=== PATIENT | female | born 1945 | race Caucasian/White ===

== ENCOUNTER 2022-11-12 09:15 | Outpatient (RCR) | payer MEDICARE, SELFPAY ==
--- NOTE | 2022-10-15 15:41 | PT.OPE ---
PT [place] [facility] PT [facility] Eval Start: 10/15/22 07:54 Freq: Status: Active Protocol: Document 10/15/22 15:40 DESTINEYT (Rec: 10/15/22 15:41 CJT [id number]) E-signed By Cal Drew, PT Physical Therapy Outpatient Evaluation Insurance Information Recert Due Date 01/13/23 Insurance Name Medicare B Medical Diagnosis M70.72 - other bursitis of hip , Left hip Treating Diagnosis M25.551 - R hip pain M25.552 - L hip pain R26.9 - other abnormalities of gait and mobility Referring MD Blair, Jacek VINES Subjective Angel Lovelace is here today because she feels like she waddles and has a lot of trouble with steps and walking long distances. She has had both knees replaced, most recent was in 2019. She says tightness from this causes her to sometimes feel unsteady as her legs and hips tighten up without warning. She does not feel that she is limited with transfers. If she's walking outside, she feels like she gets unbalanced, but does not notice this while inside. Last night she was trying to place a motion sensor and was walking back and forth in her yard, and in the middle of this she felt like she was stuck and her body didn't know which foot should go first. She has had dizziness in the past, but that has subsided. At home, she has commercial subcontractor in the shower and makes a point to turn on lights when she gets up at night. She now uses a cane ( hiking pole) when going outside, especially when navigating obstacles. She does have some pain in her L hip, but that is not her primary concern today. She mentions that she has relatively constant pain, so it is difficult to rate because it is always there. Previous x- rays show arthritis in both hips, R>L, but she notes that her pain is worse on the L ( although she does experience anterior groin pain/tightness on the R). She was offered a prescription for steroids by her physician but expresses concerns about side effects, particularly relating to glaucoma and blood sugar. She also says she is not as strong as she used to be. She gets stiff because she sits more and is less active. Today she is more concerned about her balance and stiffness than her pain. Pain Comments Current Work Status Retired Preferred Name Dana Precautions Therapy Limitations/Systems Review Not Limited Objective Other/Pertinent Objective R Hip ROM Flexion - 108 Abduction - 40 IR/ER - 36/35 Extension - DNT L Hip ROM Flexion - 110 Abduction - 40 IR/ER - 40/36 Extension - DNT R knee ROM - 0-120 L knee ROM - 0-115 R Hip Strength Flexion - 4/5 MMT Abduction - 5/5 MMT *in sitting; 4/5 MMT in S/L Adduction - 5/5 MMT IR - 4+/5 MMT ER - 4+/5 MMT Extension - DNT L Hip Strength Flexion - 4+/5 MMT *pain in lateral L hip Abduction - 5/5 MMT *in sitting; 4+/5 MMT in S/L Adduction - 5/5 MMT IR - 4+/5 MMT ER - 4+/5 MMT Extension - DNT R knee Extension - 5/5 MMT R Knee Flexion - 5/5 MMT L knee Extension - 5/5 MMT L knee Flexion - 5/5 MMT R ankle DF - 5/5 MMT L ankle DF - 5/5 MMT Palpation: pt reports pain/ tenderness with palpation to R >L greater trochanter, glut med, piriformis Pelvis: slight L posterior rotation B FADIR, JOSUE with muscle stretch sensation noted in posterior hip with both; some pain in groin with FADIR on R Gait: wide GREER, short stride length, flat foot strike at initial contact, L>R Trendelenburg LE sensation and DTRs intact Assessment Assessment/Impression [place] is a very pleasant 77 y/ o female who presents to our clinic with bilateral hip pain and stiffness. She has been experiencing pain and tightness in both legs that makes her feel unsteady. Examination reveals deficits in bilateral hip flexion, internal rotation, and external rotation strength, along with bilateral tenderness to palpation at greater trochanter and hip musculature (R>L; see objective). [place] appears to be dealing with the effects of bilateral hip arthritis along with muscle tightness. Skilled PT intervention is medically necessary to address deficits and return pt to highest level of function. The nature of the patient's condition was fully explained, and all questions were answered to her satisfaction. Recommend physical therapy sessions 2x/week for 6 weeks. Pt agrees with this plan. Printout of HEP was given for I completion and pt demonstrates verbal understanding of each exercise . Primary Functional Limitations Walking over uneven ground, stairs, balance Plan of Care Rehabilitation Potential Good Physical Therapy Goals Pt's goals: to have more mobility, to feel more steady STG: to be completed in 2-3 weeks 1. Pt will report a decrease in B hip pain by a factor of 2 in order to sit comfortably without pain. 2. Pt will demonstrate improved B hip flexion strength to 5/5 MMT in order to effectively clear her toes while ambulating. LTG: to be completed in 6 weeks 1. Pt will demonstrate independence with HEP in order to manage symptoms independently. 2. Pt will demonstrate ability to ambulate 500+ ft over even surface without use of cane in order to go for walks for pleasure. 3. Pt will demo ability to ambulate 500+ ft over uneven ground with AD in order to go on short hikes for pleasure and safely set up motion sensors in her yard. Treatment Plan/Direct Interventions Ice/Cold/Vasopneumatic,Joint Mobilization,Manual Therapy, Neuromuscular Re-ed,Self-Care/ Home Management,Therapeutic Activities,Therapeutic Exercises Frequency/Duration 2/week for 6 weeks Patient Will Be Discharged From Therapy Completion of LTG(s),Skills Plateau,Independent w/HEP, Independently Progressing Evaluation Billing Untimed Code Treatment Minutes 48 PT Eval No Charge No Complexity Low Certification Information Initial Certification Date 10/15/22 Ending Certification Date 01/13/23 Provider Signature Shows Agreement With POC & Medical Necessity Physician Signature & Date Requested Please Sign/Date Here Physician Comment/Change : Physician NPI Number #
== END 2022-12-16 13:13 | disposition home or self-care (01) ==
PROVIDERS: PCP Family Medicine; Visit Provider Orthopaedic Surgery
DX: M70.72 Other bursitis of hip, left hip (principal); Z51.89 Encounter for other specified aftercare
CPT/HCPCS: 97110; 97112; 97140; 97161; 97535

== ENCOUNTER 2023-09-29 15:53 | Outpatient (CLI) | payer MEDICARE, SELFPAY | END 2023-09-29 15:54 | disposition home or self-care (01) | PROVIDERS: PCP Family Medicine; Visit Provider Emergency Medicine | DX: Z00.00 Encounter for general adult medical examination without abnormal findings (principal); E03.9 Hypothyroidism, unspecified; I10 Essential (primary) hypertension; E53.8 Deficiency of other specified B group vitamins; Z13.6 Encounter for screening for cardiovascular disorders; Z13.820 Encounter for screening for osteoporosis; Z78.0 Asymptomatic menopausal state | CPT/HCPCS: 80061; 82607; 84443 ==

== ENCOUNTER 2023-10-20 14:57 | Outpatient (CLI) | payer MEDICARE, SELFPAY | END 2023-10-20 14:58 | disposition home or self-care (01) | LOC: LKVREF 14:58 | PROVIDERS: PCP Family Medicine; Visit Provider Emergency Medicine | DX: I10 Essential (primary) hypertension (principal) | CPT/HCPCS: 80048 ==

== ENCOUNTER 2023-11-03 12:40 | Outpatient (CLI) | payer MEDICARE, SELFPAY ==
--- NOTE | 2023-11-03 13:30 | CRLHL7_ITS ---
For Patients: As a result of the Century Cures Act, medical imaging exams and procedure reports are released immediately into your electronic medical record. You may view this report before your referring provider. If you have questions, please contact your health care provider. DXA BONE MINERAL DENSITY STUDY Current height (in): 61.0. Weight (lb): 190.0. Menopause age: 47. Ethnicity: White. Reason for exam: Encounter for screening for osteoporosis. 1. Have you had a previous hip or vertebral fracture? No. 2. Have you had any fractures during your adult life which did not result from significant trauma (e.g., auto accident)? Yes. 3. Did either of your parents have a hip fracture? Yes. 4. Do you smoke? No. 5. Have you ever taken Glucocorticoids? No. 6. Do you have rheumatoid arthritis? Yes. 7. Do you have secondary osteoporosis? No. 8. Do you drink 3 or more alcoholic drinks per day? No. 9. Are you being treated for osteoporosis? No. 10. Have you ever taken any of the following medications: Actonel, Evista, Fosamax, Miacalcin, Reclast, Boniva, Forteo, HRT (i.e. estrogen/hormone therapy), Protelos, Prolia, Vitamin D, Calcium, other ??? please specify. ANSWER: Yes, calcium, vitamin D. 11. Do you have any of the following medical conditions: Anorexia or bulimia, asthma or emphysema, end stage renal disease, hyperparathyroidism, any seizure disorders, cancer, inflammatory bowel diseases, hysterectomy, other ??? please specify. ANSWER: Yes, cancer, hysterectomy. 12. What was your maximum height (inches)? 62. 13. Do you perform weight bearing exercise regularly? Yes. 14. Do you regularly consume dairy products? Yes. 15. Do you drink caffeinated beverages? Yes. 16. At what age did your period start? 9. 17. Are you premenopausal? No. 18. How many full-term pregnancies have you had? 4. 19. Have you ever missed your period for more than 6 months in a row (not including or menopause)? No. TECHNIQUE: Bone mineral density study was performed using the [employer]. FINDINGS: The results of the study expressed as bone mineral density (BMD) are as follows: Lumbar spine L1 to L4: BMD: 0.876 g/cm2. T-score: -1.6. Z-score: 1.1 Neck Left: BMD: 0.598 g/cm2. T-score: -2.3. Z-score: 0.0 Right: BMD: 0.574 g/cm2. T-score: -2.5. Z-score: -0.2 Total Left: BMD: 0.743 g/cm2. T-score: -1.6. Z-score: 0.4 Right: BMD: 0.727 g/cm2. T-score: -1.8. Z-score: 0.3 IMPRESSION: Osteoporosis. Bennett Dueñas M.D. Diagnostic Radiologist [email or web address] Transcribed: 10:53 am DW/Dictated by: Bennett Dueñas MD @ 11/04/2023 8:45:00 AM (Electronically Signed)
== END 2023-11-03 12:41 | disposition home or self-care (01) ==
LOC: RAD 12:41
PROVIDERS: PCP Emergency Medicine; Visit Provider Emergency Medicine
DX: Z13.820 Encounter for screening for osteoporosis (principal); M81.0 Age-related osteoporosis without current pathological fracture; Z78.0 Asymptomatic menopausal state
CPT/HCPCS: 77080

== ENCOUNTER 2023-11-08 07:49 | Outpatient (CLI) | payer MEDICARE, SELFPAY | END 2023-11-08 07:50 | disposition home or self-care (01) | LOC: RAD 07:49 | PROVIDERS: PCP Emergency Medicine; Visit Provider Emergency Medicine | DX: R06.09 Other forms of dyspnea (principal); R06.02 Shortness of breath | CPT/HCPCS: 93306 ==

== ENCOUNTER 2023-11-16 07:46 | Outpatient (CLI) | payer MEDICARE, SELFPAY ==
[2023-11-16 10:37] VITALS: BP 137/89; PULSE 100; RESP 16
[2023-11-16] MEDS: REGADENOSON 0.4 MG/5 ML SYRINGE IVP (10:37)
[2023-11-16] MEDS: SODIUM CHLORIDE 0.9 % (FLUSH) 10 ML SYRINGE IVF (10:37)
--- NOTE | 2023-11-16 12:16 | W.PM.STED ---
Stress Test Note Date Date of test: 11/16/23 Providers Primary care provider: Dalia Puga Stress test physician: Héctor Martinez Stress Test Note Stress test ordered: Lexiscan Indication for test: Shortness of breath Stress test medicine: Lexiscan Results discussion: Patient is a very nice 78-year-old female presents for the above test, after the risks benefits and side effects of this test are explained to her she would like to proceed. Cardiac stress test medical history form is reviewed. Pretest EKG shows normal sinus rhythm with occasional PVCs. Ventricular rate is 82 and blood pressure 134/84. Standard walking Lexiscan protocol is followed for a duration of 5 minutes. Maximum heart rate was 123, which is 103% of the maximum. During this test there were no anginal equivalent symptoms, she had no subjective complaints. Review of the tracing showed no change EKG changes from her mild abnormalities a baseline Impression: Negative electrographic portion of Lexiscan, subjectively negative Follow up suggested: Await nuclear images, these will be reviewed, clinical correlation with these will be needed. Patient recovered normally left this testing facility in excellent condition.
== END 2023-11-16 10:38 | disposition home or self-care (01) ==
LOC: STRESS 07:47
PROVIDERS: PCP Emergency Medicine; Visit Provider Family Medicine
DX: R06.02 Shortness of breath (principal); M54.6 Pain in thoracic spine
CPT/HCPCS: 78452; 93016; 93017; A9500; J2785

== ENCOUNTER 2023-12-01 11:17 | Outpatient (CLI) | payer MEDICARE, SELFPAY | END 2023-12-01 11:18 | disposition home or self-care (01) | LOC: LKVREF 11:17 | PROVIDERS: PCP Emergency Medicine; Visit Provider Emergency Medicine | DX: M81.0 Age-related osteoporosis without current pathological fracture (principal) | CPT/HCPCS: 82306 ==

== ENCOUNTER 2023-12-27 13:55 | Outpatient (CLI) | payer MEDICARE, SELFPAY ==
--- NOTE | 2023-12-27 14:40 | CRLHL7_ITS ---
For Patients: As a result of the Cures Act, medical imaging exams and procedure reports are released immediately into your electronic medical record. You may view this report before your referring provider. If you have questions, please contact your health care provider. BILATERAL SCREENING MAMMOGRAM WITH COMPUTER-AIDED DETECTION AND TOMOSYNTHESIS TECHNIQUE: CC and MLO views were obtained. These mammographic images have been obtained using full-field digital technique. These mammographic images were interpreted with the benefit of computer-aided detection. Breast Tomosynthesis was used in this interpretation. COMPARISON FILM: 08/18/18, 08/31/18 (right only). FINDINGS: There are scattered areas of fibroglandular density IMPRESSION: There is no radiographic evidence for malignancy. ASSESSMENT: BI-RADS Category 2: Benign RECOMMENDATION: Routine screening mammogram in 1 year. A lay language report of this examination will be provided to the patient. Bennett Dueñas M.D. Diagnostic Radiologist [email or web address] ROSEANNA/ana Transcribed: 2:57 p.mFeliciano perez/Dictated by: Bennett Dueñas MD @ 12/28/2023 9:31:00 AM (Electronically Signed)
== END 2023-12-27 13:56 | disposition home or self-care (01) ==
LOC: MAMMO 13:56
PROVIDERS: PCP Emergency Medicine; Visit Provider Emergency Medicine
DX: Z12.31 Encounter for screening mammogram for malignant neoplasm of breast (principal)
CPT/HCPCS: 77063; 77067

== ENCOUNTER 2024-05-01 13:00 | Outpatient (RCR) | payer MEDICARE, SELFPAY | END 2024-08-16 07:38 | disposition home or self-care (01) | PROVIDERS: PCP Emergency Medicine; Visit Provider Physical Medicine & Rehabilitation | DX: M54.50 Low back pain, unspecified (principal); R26.81 Unsteadiness on feet; Z51.89 Encounter for other specified aftercare | CPT/HCPCS: 97110; 97112; 97161 ==

== ENCOUNTER 2024-07-19 10:14 | Outpatient (CLI) | payer MEDICARE, SELFPAY | END 2024-07-19 10:15 | disposition home or self-care (01) | PROVIDERS: PCP Emergency Medicine; Visit Provider Emergency Medicine | DX: E03.9 Hypothyroidism, unspecified (principal); I10 Essential (primary) hypertension | CPT/HCPCS: 80048; 84443 ==

== ENCOUNTER 2024-08-08 08:13 | Day surgery (SDC) | payer MEDICARE, SELFPAY ==
[2024-08-08] VITALS (25 sets, daily range): BP systolic 93–136; BP diastolic 52–88; PULSE 58–81; RESP 12–20; TEMP 35.4–36.7; O2SAT 96–100; BMI 34.7
[2024-08-08] MEDS: ACETAMINOPHEN 500 MG TABLET 1000 MG PO ×3 (09:51→21:46)
[2024-08-08] MEDS: OXYCODONE (CR) 10 MG TAB.ER.12H PO (09:51)
[2024-08-08] MEDS: CELECOXIB 200 MG CAPSULE PO (09:51)
[2024-08-08] MEDS: SODIUM CHLORIDE 0.9 % (FLUSH) 10 ML SYRINGE IVF (09:57)
[2024-08-08] MEDS: LACTATED RINGERS 1000 ML 1,000 ML 100 ML IV ×2 (09:57→11:40)
[2024-08-08] MEDS: fentaNYL 100 MCG/2 ML inj IVP (10:02)
[2024-08-08] MEDS: MIDAZOLAM HCL 1 MG/ML inj IVP (10:02)
--- NOTE | 2024-08-08 10:03 | SUR.PREOP ---
TIME?OUT:?1000 PT/RN/MDA?VERIFICATION?OF?SURGICAL?SITE,?PROCEDURE,?AND?CONSENT OBTAINED?PRIOR?TO?INVASIVE?PROCEDURE. all in agreement
[2024-08-08] MEDS: CEFAZOLIN 1 GM inj IVP (10:34)
--- NOTE | 2024-08-08 10:45 | CRLHL7_ITS ---
For Patients: As a result of the Cures Act, medical imaging exams and procedure reports are released immediately into your electronic medical record. You may view this report before your referring provider. If you have questions, please contact your health care provider. Indication: Hip replacement surgery Technique: AP hip fluoroscopic image. Fluoroscopy time 47.7 seconds. Findings/Impression: Hardware from a right total hip arthroplasty is in satisfactory position. Dictated by Bennett Dueñas MD @ 08/08/2024 12:25:01 PM (Electronically Signed)
[2024-08-08] MEDS: TRANEXAMIC ACID 100 MG/ML INJ 1000 MG IV (11:00)
--- NOTE | 2024-08-08 11:04 | P.NB_ITS ---
Nerve Block Nerve Block Time Seen by Provider: 10:00 Date Seen: 08/08/24 Type of block requested by surgeon for post-operative analgesia: CIRILO/LFCN Side: right Time out performed: Yes Verification of patient name: Yes Verification of date of : Yes Site marking: site marked Name of person performing procedure: Alber Continuous monitoring Was continuous monitoring of O2 sat, B/P, monitor technician, recorded every 15 minutes?: Yes Procedure Checklist: sterile prep, needles and gloves Ultrasound guided. Images saved: Yes Medications given in 5ml increments after negative aspiration: Ropivicaine %: 0.5 mL: 30 Needle gauge: 20 Precedex (mcg): 25 Patient tolerated procedure well: Yes Additional comments: Needle noted below psoas tendon needle noted adjacent to LFCN Block Charges Block Charge (with Pro Fee): Other Periph Nerve Block Use of Ultrasound Machine for Block: Yes- US Guidance/pain block
--- NOTE | 2024-08-08 12:00 | CRLHL7_ITS ---
For Patients: As a result of the Cures Act, medical imaging exams and procedure reports are released immediately into your electronic medical record. You may view this report before your referring provider. If you have questions, please contact your health care provider. Indication: Postop Technique: AP hip centered pelvis and lateral view right hip Findings/Impression: Hardware from a right total hip arthroplasty is in satisfactory position. Bone alignment is normal. No sign of acute fracture. Postop changes are within normal limits. Dictated by Bennett Dueñas MD @ 08/08/2024 3:35:18 PM (Electronically Signed)
--- NOTE | 2024-08-08 12:01 | P.ORPRC_ITS ---
Procedure Note Date of procedure: 08/08/24 Procedure: PREOPERATIVE DIAGNOSIS: Right hip osteoarthritis POSTOPERATIVE DIAGNOSIS: Right hip osteoarthritis NAME OF OPERATION: Right total hip arthroplasty SURGEON: Jacek Blair MD FARM AGENT: Jadyn Quinonez PA-C, SANDIE Horton, Marsha Abdul, MS4 IMPLANTS: 1. [employer] [place] # 48 sector ingrowth cup 2. 32 x 48 +4 neutral polyethylene 3. Actis #4 standard collared ingrowth stem 4. 32 +1 cobalt chrome femoral head ANESTHESIA: Spinal ESTIMATED BLOOD LOSS: 200 cc COMPLICATIONS: None SPECIMENS: None DRAINS: None PREOPERATIVE ANTIBIOTICS: Ancef 2 grams INDICATIONS: The patient is an 78-year-old with a longstanding history of severe, unrelenting right hip pain secondary to end-stage right hip osteoarthritis. Despite appropriate nonoperative management, including activity modification, use of an assist device, anti-inflammatories, [id number] pain medication, physical therapy and injections, they continue to have pain and disability. Operative intervention was offered. The risks, benefits and expected outcomes were discussed in detail. These included but were not limited to: Infection, bleeding, injury to blood vessel or nerve, venous thromboembolism. All questions were answered to their satisfaction. Use of an human resources benefits assistant was necessary throughout the case for patient positioning and safety, soft tissue retraction and closure. PROCEDURE: Spinal anesthesia was administered. The patient was placed supine on the [place] table. The human resources benefits assistant made sure the patient was properly positioned. The right hip was prepped and draped in the usual sterile fashion. The image intensifier was brought in for a perfect AP pelvis and a perfect double tear drop AP view of each hip which were used for intraoperative templating with our fluoroscopic guide. An oblique incision was made 3 cm distal and 3 cm lateral to the anterior superior iliac spine. The human resources benefits assistant retracted the soft tissues to protect them. Subcutaneous dissection was taken with electrocautery to the superficial fas martin. The fascia was divided in line with the incision. Blunt dissection was carried medially to the tensor fascia crys and sartorius interval. Deep dissection was carried with electrocautery. The circumflex vessels were cauterized and divided. The capsule was exposed and then divided in a T- fashion, tagged with #1 FiberWire sutures. Retractors were placed in the joint, held by the human resources benefits assistant. The corkscrew was placed in the femoral head. The neck cut was made in the subcapital region. We made a second neck cut more distal. The napkin ring of bone was removed. The femoral head was removed intact. Acetabular retractors were placed, held by the human resources benefits assistant. The labrum was sharply debrided. The capsule was released. The 43 mm reamer was used to the true medial wall. We then enlarged in 2 mm increments using the image intensifier for our reamer placement. We impacted the cup which had excellent purchase. We placed the polyethylene. Attention was then turned to the proximal femur. The limb was placed in 140 degrees of external rotation, maximum extension and adduction. A significant amount of time was spent releasing the capsule to allow us to deliver the femur into the wound and complete the femoral side safely. Retractors were held by the human resources benefits assistant throughout the femoral preparation. The box brander and canal finder were used. Broaches were used to a stable size. The calcar reamer was used. Trial components were placed. The hip was reduced and was found to be stable with appropriate soft tissue tension. Length and offset had been nicely restored using the image intensifier and our fluoroscopic guide. Trial components were removed. The stem was impacted. We placed the femoral head. Again, the hip was reduced and was found to be stable with appropriate soft tissue tension. Length and offset had been nicely restored. The human resources benefits assistant did a three minute dilute Betadine solution soak. The human resources benefits assistant irrigated the wound with 3 liters of normal saline via pulse lavage. The human resources benefits assistant repaired the anterior capsule with a #1 Vicryl and our previously placed Ethibond sutures. The human resources benefits assistant closed the fascia over the tensor fascia crys with a #1 PDO Stratafix, subcutaneous tissues with 2-0 Vicryl, skin with a running 3-0 Stratafix and glue. A dry dressing was applied by the human resources benefits assistant. Sponge and needle counts were correct x 2. The patient tolerated the procedure well; there were no apparent complications. They were awakened and extubated in the operating room, sent to the Post-Anesthesia Care Unit in satisfactory condition. PLAN: 1. The patient will be mobilized with physical therapy, weight-bearing as tolerates 2. Xarelto x 5 days then aspirin x 30 days will be used for DVT prophylaxis 3. The patient will be discharged once medically appropriate
--- NOTE | 2024-08-08 12:21 | P.ANES_ITS ---
Anesthesia Charges Start Date/Time Anesthesia Start Date: 08/08/24 Anesthesia Start Time: 10:13 Stop Date/Time Anesthesia Stop Date: 08/08/24 Anesthesia Stop Time: 13:00 Summary Extremes of Age - Over 70 or under 1: MDA Coding CPT Codes CPT Codes: ANESTH HIP ARTHROPLASTY - 46543 ([id number]) P2 - PATIENT W/MILD SYST DISEASE, QK - CALL CENTER ASSOCIATE 2-4 CNCRNT ANES PROC, QX - SALESPERSON FLOWERS SVC W/ MD MED DIRECTION Additional Codes: Summary - Extremes of Age - Over 70 or under 1: MDA ([id number])
--- NOTE | 2024-08-08 12:21 | W.ANESCHARGE ---
Anesthesia Charges Start Date/Time Anesthesia Start Date: 08/08/24 Anesthesia Start Time: 10:13 Stop Date/Time Anesthesia Stop Date: 08/08/24 Anesthesia Stop Time: 13:00 Summary Extremes of Age - Over 70 or under 1: MDA Coding CPT Codes CPT Codes: ANESTH HIP ARTHROPLASTY - 33871 ([id number]) P2 - PATIENT W/MILD SYST DISEASE, QK - PASTEURISER OPERATOR 2-4 CNCRNT ANES PROC, QX - SENIOR APPLICATIONS ENGINEER SVC W/ MD MED DIRECTION Additional Codes: Summary - Extremes of Age - Over 70 or under 1: MDA ([id number])
--- NOTE | 2024-08-08 13:01 | P.ANES_ITS ---
Anesthesia Charges Start Date/Time Anesthesia Start Date: 08/08/24 Anesthesia Start Time: 10:13 Stop Date/Time Anesthesia Stop Date: 08/08/24 Anesthesia Stop Time: 13:00 Coding CPT Codes CPT Codes: ANESTH HIP ARTHROPLASTY - 40117 ([id number]) P2 - PATIENT W/MILD SYST DISEASE, QK - KITMAN 2-4 CNCRNT ANES PROC, QX - ASSOCIATE MUSIC PROFESSOR SVC W/ MD MED DIRECTION
--- NOTE | 2024-08-08 13:01 | W.ANESCHARGE ---
Anesthesia Charges Start Date/Time Anesthesia Start Date: 08/08/24 Anesthesia Start Time: 10:13 Stop Date/Time Anesthesia Stop Date: 08/08/24 Anesthesia Stop Time: 13:00 Coding CPT Codes CPT Codes: ANESTH HIP ARTHROPLASTY - 36454 ([id number]) P2 - PATIENT W/MILD SYST DISEASE, QK - OFFSET PRINTING OPERATOR 2-4 CNCRNT ANES PROC, QX - AGENCY MANAGER SVC W/ MD MED DIRECTION
[2024-08-08] MEDS: ONDANSETRON 2 MG/ML inj 4 MG IVP ×2 (13:16→20:03)
--- NOTE | 2024-08-08 13:43 | SUR.PHASEI ---
patient met discharge criteria per anesthesia
[2024-08-08] MEDS: HYDROmorphone 0.5 mg/0.5 ml inj IVP (14:19)
[2024-08-08] MEDS: LACTATED RINGERS 1000 ML 1,000 ML 75 ML IV (16:18)
[2024-08-08] MEDS: OXYCODONE 5 MG TABLET PO ×2 (16:18→21:48)
--- NOTE | 2024-08-08 16:38 | PC.NURSE ---
End of shift [id number] - Pt arrived from PACU at approximately 1340. Pt alert, oriented, and cooperative. Able to follow commands. Slight movement noted in bilat LE, pt reported feeling tingling and burning in surgical site. Given medication per MAR with pt reporting improvement. Ice pack on site, dressing CDI, pedal pulse present. Tolerating RA and ice chips, reported intermittent mild nausea that resolved with no intervention. O2 saturation dropped while pt was asleep, RN added O2 at 1L via nasal cannula to maintain O2 saturation. Pt appears to be resting comfortably in bed at end of shift with call light within reach.
--- NOTE | 2024-08-08 17:07 | PM.IMCN1 ---
Date of Consult Patient: [facility] Patient Consult date: 08/08/24 Requesting Physician: Orthopedics Primary Care Provider: Dalia Puga Consult Narrative Reason for consult: Medical management of comorbidities Narrative: [place] Verduzco is a 78 year old female who presented to the hospital today for an elective R hip replacement with Dr. Blair of Orthopedic Surgery. There were no surgical or anesthetic complications noted during procedure. Patient's H&P reviewed, PCP is Dr Puga. Past medical history significant for: hypothyroidism, essential HTN, osteoporosis History of blood clots: No Postoperative plan: Home, son will be staying with her. Review of Systems Status of ROS: Reports: 10 or more systems reviewed and unremarkable except as noted in History and below PFSH [facility] Medical History (Updated 08/08/24 @ 19:01 by Danita Aragon MD) GERD (gastroesophageal reflux disease) ?K21.9 - Gastro-esophageal reflux disease without esophagitis (ICD-10) Osteoporosis ?M81.0 - Age-related osteoporosis without current pathological fracture (ICD-10) Back pain, thoracic ?M54.6 - Pain in thoracic spine (ICD-10) SOB (shortness of breath) ?R06.02 - Shortness of breath (ICD-10) Hyperlipidemia ?E78.5 - Hyperlipidemia, unspecified (ICD-10) Screening for diabetes mellitus ?Z13.1 - Encounter for screening for diabetes mellitus (ICD-10) Hypertension ?I10 - Essential (primary) hypertension (ICD-10) Screening for hyperlipidemia ?Z13.220 - Encounter for screening for lipoid disorders (ICD-10) Family history of coronary artery disease ?Z82.49 - Family history of ischemic heart disease and other diseases of the circulatory system (ICD-10) Post-menopausal ?Z78.0 - Asymptomatic menopausal state (ICD-10) B12 deficiency ?E53.8 - Deficiency of other specified B group vitamins (ICD-10) Muscle cramps ?R25.2 - Cramp and spasm (ICD-10) Cyst of perineum of female ?N90.89 - Other specified noninflammatory disorders of vulva and perineum (ICD-10) Rib fracture ?S22.39XA - Fracture of one rib, unspecified side, initial encounter for closed fracture (ICD-10) Low bone density ?M85.9 - Disorder of bone density and structure, unspecified (ICD-10) Chest wall pain ?R07.89 - Other chest pain (ICD-10) Foot fracture, right ?S92.901A - Unspecified fracture of right foot, initial encounter for closed fracture (ICD-10) Foot fracture, left ?S92.902A - Unspecified fracture of left foot, initial encounter for closed fracture (ICD-10) Breast cancer ?C50.919 - Malignant neoplasm of unspecified site of unspecified female breast (ICD-10) Hypothyroid ?E03.9 - Hypothyroidism, unspecified (ICD-10) Surgical History (Updated 08/08/24 @ 19:01 by Danita Aragon MD) Status post right hip replacement ?Z96.641 - Presence of right artificial hip joint (ICD-10) History of total right hip arthroplasty (08/08/24) ?Z96.641 - Presence of right artificial hip joint (ICD-10) History of total left knee replacement ?Z96.652 - Presence of left artificial knee joint (ICD-10) Hx of cataract surgery ?Z98.49 - Cataract extraction status, unspecified eye (ICD-10) History of hysterectomy ?Z90.710 - Acquired absence of both cervix and uterus (ICD-10) Hx of cholecystectomy ?Z90.49 - Acquired absence of other specified parts of digestive tract (ICD-10) History of appendectomy ?Z90.49 - Acquired absence of other specified parts of digestive tract (ICD-10) H/O lumpectomy ?Z98.890 - Other specified postprocedural states (ICD-10) History of total right knee replacement (02/10/08) ?Z96.651 - Presence of right artificial knee joint (ICD-10) Status post left knee replacement (02/06/20) ?Z96.652 - Presence of left artificial knee joint (ICD-10) Family History (Updated 09/29/23 @ 15:45 by Dalia Puga MD) Daughter Congenital heart defect Brother Coronary artery disease Mother Coronary artery disease Father Colon cancer Social History (Updated 07/19/24 @ 10:11 by Dalia Puga MD) Narrative: retired [employer], [address], x 2, 3 living no tobacco, 1/week stability and balance ,silver sneakers 2x/week, [facility] What is your current living situation?: I presently have a place to live In the past 12 months, utilities in danger of being shut off: no In past 12 months, lack of transportation kept you from medical appts, meetings, work, or getting things needed for daily living: no In the past 12 mos, have been you worried that your food would run out before you had money to buy more?: never true In the past 12 mos, the food you bought just didn't last and you didn't have money to buy more?: never true Smoking Status: Never smoker Do you use any of these nicotine containing products: None How often do you have a drink containing alcohol: never AUDIT-C Alcohol total score: 0 Non-prescribed substance use: denies use Caffeine: No How often does anyone, including family, friends and others, physically hurt you: never How often does anyone, including family, friends and others, insult or talk down to you: never How often does anyone, including family, friends and others, threaten you with harm: never How often does anyone, including family, friends and others, scream or curse at you: never Meds Home Medications and Allergies Home Medications ?Medication ?Instructions ?Recorded ?Confirmed ?Type cyclobenzaprine 10 mg tablet 10 mg PO HS PRN 11/19/21 08/08/24 History latanoprost 0.005 % eye drops 1 drp ophthalmic (eye) QPM 09/29/23 08/08/24 History timolol 0.5 % eye drops 1 drp ophthalmic (eye) DAILY 09/29/23 08/08/24 History Cbd oil PO PRN 10/20/23 07/19/24 History amoxicillin 500 mg capsule 2,000 mg PO ONCE PRN 10/20/23 08/08/24 History levothyroxine 75 mcg tablet 75 mcg PO DAILY 08/08/24 08/08/24 History losartan 50 mg tablet 50 mg PO DAILY 08/08/24 08/08/24 History Allergies Allergy/AdvReac Type Severity Reaction Status Date / Time bupropion (From Wellbutrin) Allergy Intermediate Hives Verified 07/25/24 09:01 Exam Narrative: Exam Narrative: GEN: Alert and oriented, sitting comfortably in bed HEENT: EOMIs bilaterally, no scleral icterus CV: RRR, No concerning murmurs R: LCTA bilaterally without concerning wheezing Ext: SCDs BLE, no concerning findings Skin: No concerning skin lesions or rashes on exposed skin Neuro: No focal deficits Psych: Appropriate Const: Vital Signs, click to edit/add: Vital Signs - 24 hr 08/08/24 09:54 08/08/24 10:01 08/08/24 10:04 Temperature 98.1 F Pulse Rate 81 77 71 Respiratory Rate 16 16 16 Blood Pressure 136/86 102/63 110/65 Pulse Oximetry 97 97 98 Oxygen Delivery Me thod Room Air Nasal Cannula Nasal Cannula Oxygen Flow Rate 2 2 08/08/24 12:56 08/08/24 13:00 08/08/24 13:05 Temperature 97 F L 97 F L 97 F L Pulse Rate 67 73 68 Respiratory Rate 12 12 20 Blood Pressure 104/59 L 93/52 L 93/66 Pulse Oximetry 97 98 98 Oxygen Delivery Me thod Room Air Room Air Room Air Oxygen Flow Rate 08/08/24 13:10 08/08/24 13:15 08/08/24 13:20 Temperature 97 F L 97 F L 97 F L Pulse Rate 65 64 64 Respiratory Rate 15 13 12 Blood Pressure 109/64 98/62 111/64 Pulse Oximetry 96 96 96 Oxygen Delivery Me thod Room Air Room Air Room Air Oxygen Flow Rate 08/08/24 13:25 08/08/24 13:30 08/08/24 13:40 Temperature 97 F L 97.4 F L 95.7 F L Pulse Rate 71 68 68 Respiratory Rate 18 18 16 Blood Pressure 114/72 116/66 117/70 Pulse Oximetry 96 99 97 Oxygen Delivery Me thod Room Air Room Air Room Air Oxygen Flow Rate 08/08/24 13:55 08/08/24 14:10 08/08/24 14:25 Temperature 96.0 F L 95.9 F L Pulse Rate 68 59 L 67 Respiratory Rate 16 16 16 Blood Pressure 117/73 118/69 119/82 Pulse Oximetry 99 100 100 Oxygen Delivery Me thod Oxygen Flow Rate 08/08/24 14:40 08/08/24 15:00 08/08/24 15:10 Temperature Pulse Rate 58 L 59 L Respiratory Rate 16 16 Blood Pressure 118/66 121/61 Pulse Oximetry 100 97 100 Oxygen Delivery Me thod Nasal Cannula Room Air Nasal Cannula Oxygen Flow Rate 1 1 08/08/24 15:30 08/08/24 15:50 Temperature 97.5 F L 95.7 F L Pulse Rate 72 68 Respiratory Rate 16 16 Blood Pressure 106/64 117/70 Pulse Oximetry 98 97 Oxygen Delivery Me thod Room Air Room Air Oxygen Flow Rate Assessment and Plan Assessment and plan (1) Status post right hip replacement: Problem comment: - 08/08/24, Dr. Blair Status: Acute Plan - pain management and prophylaxis per orthopedic surgery team - continue home medications for comorbidities - anticipate routine postoperative course
[2024-08-08] MEDS: CEFAZOLIN 2 GM in 0.9 % SODIUM CHLORIDE Mini-bag 100 ML IVPB (18:34)
[2024-08-08] MEDS: SENNOSIDES 1 TAB TABLET 2 TAB PO (21:46)
[2024-08-08] MEDS: MELATONIN 3 MG TABLET PO (21:46)
[2024-08-08] MEDS: MAG HYDROX/ALUMINUM HYD/SIMETH 30 ML ORAL.SUSP PO (23:57)
[2024-08-09 03:00] VITALS: BP 113/66; PULSE 79; RESP 16; TEMP 36.4; O2SAT 99
[2024-08-09] MEDS: CEFAZOLIN 2 GM in 0.9 % SODIUM CHLORIDE Mini-bag 100 ML IVPB (03:08)
[2024-08-09] MEDS: ONDANSETRON 2 MG/ML inj 4 MG IVP (03:51)
[2024-08-09] MEDS: ACETAMINOPHEN 500 MG TABLET 1000 MG PO ×2 (03:51→10:13)
[2024-08-09] MEDS: LEVOTHYROXINE 75 MCG TABLET PO (06:29)
[2024-08-09 06:31] LABS: Basophils Percent Auto 0.1 % (0.0-3.0); Eosinophils Percent Auto 0.1 % (0.0-7.0); Hematocrit 32.1 % (33.0-51.0); Hemoglobin* 10.5 gm/dL (12.0-16.0); Immature Granulocytes Pct Auto 0.3 %; Mean Corpuscular HGB Conc 33 gm/dL (32-36); Mean Corpuscular Hemoglobin 31 pg (26-34); Mean Corpuscular Volume 93 fL (80-100); Monocytes Percent Auto 7.2 % (0.0-11.0); Neutrophils Percent Auto 85.3 % (42.0-72.0); Platelet Count* 197 K/uL (140-440); Red Blood Count 3.44 m/uL (4.00-5.20); White Blood Count* 12.03 K/uL (4.50-11.00)
[2024-08-09 06:34] LABS: Slide Review Reflex No
[2024-08-09 06:47] LABS: Potassium* 4.3 mmol/L (3.6-5.1); Sodium* 130 mmol/L (135-149)
[2024-08-09 06:50] LABS: Blood Urea Nitrogen* 18 mg/dL (7-30); Creatinine* 0.7 mg/dL (0.5-1.5); Est. Creatinine Clearance* 33.86; Estimated Glomerular Filt Rate 87 ml/min
--- NOTE | 2024-08-09 06:58 | PC.NURSE ---
[id number]: Pt alert, oriented and vitally stable. Pt stated nausea post surgically and it is recurrent through past surgeries. Pt educated on restricting fluids instead of chugging, Zofran given. Pt did have 25-50 out of emesis. Pt also stated mild dizziness. Pt up with 1 assist, FWW and gait belt. Pain rated minimal. Ice pack to op site. Pt in bed, appears to be resting, call light within reach.
[2024-08-09] MEDS: RIVAROXABAN 10 MG TABLET PO (08:22)
[2024-08-09] MEDS: OXYCODONE 5 MG TABLET PO (08:22)
[2024-08-09] MEDS: SENNOSIDES 1 TAB TABLET 2 TAB PO (08:22)
--- NOTE | 2024-08-09 08:25 | PM.ORPN ---
Subjective Subjective Time Seen by Provider: 07:30 Date Seen: 08/09/24 Principal diagnosis: Status post right hip replacement Interval history: [place] is ambulating well this morning from restroom to her chair. She states she vomited twice yesterday. She plans to discharge to home with her son today. Ortho Exam Narrative Exam Narrative: Alert and oriented x3. Patient is in no acute distress. Converses without labored breathing. Hearing is grossly intact. Ambulates with a walker. Examination of the right hip shows the dressing is intact. There is no warmth or sign of infection. There is erythema from the ice pack lateral/posteriorly. CMS intact right lower extremity. Calves are soft and nontender. No edema about the thigh. Mild edema about the hip. Const Vital Signs, click to edit/add: Vital Signs - 24 hr 08/08/24 09:54 08/08/24 10:01 08/08/24 10:04 Temperature 98.1 F Pulse Rate 81 77 71 Pulse Rate [Right Pulse Oximeter] Respiratory Rate 16 16 16 Blood Pressure 136/86 102/63 110/65 Blood Pressure [Left Arm] Pulse Oximetry 97 97 98 Oxygen Delivery Method Room Air Nasal Cannula Nasal Cannula Oxygen Flow Rate 2 2 08/08/24 12:56 08/08/24 13:00 08/08/24 13:05 Temperature 97 F L 97 F L 97 F L Pulse Rate 67 73 68 Pulse Rate [Right Pulse Oximeter] Respiratory Rate 12 12 20 Blood Pressure 104/59 L 93/52 L 93/66 Blood Pressure [Left Arm] Pulse Oximetry 97 98 98 Oxygen Delivery Method Room Air Room Air Room Air Oxygen Flow Rate 08/08/24 13:10 08/08/24 13:15 08/08/24 13:20 Temperature 97 F L 97 F L 97 F L Pulse Rate 65 64 64 Pulse Rate [Right Pulse Oximeter] Respiratory Rate 15 13 12 Blood Pressure 109/64 98/62 111/64 Blood Pressure [Left Arm] Pulse Oximetry 96 96 96 Oxygen Delivery Method Room Air Room Air Room Air Oxygen Flow Rate 08/08/24 13:25 08/08/24 13:30 08/08/24 13:40 Temperature 97 F L 97.4 F L 95.7 F L Pulse Rate 71 68 68 Pulse Rate [Right Pulse Oximeter] Respiratory Rate 18 18 16 Blood Pressure 114/72 116/66 117/70 Blood Pressure [Left Arm] Pulse Oximetry 96 99 97 Oxygen Delivery Method Room Air Room Air Room Air Oxygen Flow Rate 08/08/24 13:55 08/08/24 14:10 08/08/24 14:25 Temperature 96.0 F L 95.9 F L Pulse Rate 68 59 L 67 Pulse Rate [Right Pulse Oximeter] Respiratory Rate 16 16 16 Blood Pressure 117/73 118/69 119/82 Blood Pressure [Left Arm] Pulse Oximetry 99 100 100 Oxygen Delivery Method Oxygen Flow Rate 08/08/24 14:40 08/08/24 15:00 08/08/24 15:10 Temperature Pulse Rate 58 L 59 L Pulse Rate [Right Pulse Oximeter] Respiratory Rate 16 16 Blood Pressure 118/66 121/61 Blood Pressure [Left Arm] Pulse Oximetry 100 97 100 Oxygen Delivery Method Nasal Cannula Room Air Nasal Cannula Oxygen Flow Rate 1 1 08/08/24 15:30 08/08/24 15:50 08/08/24 16:00 Temperature 97.5 F L 95.7 F L Pulse Rate 72 68 70 Pulse Rate [Right Pulse Oximeter] Respiratory Rate 16 16 16 Blood Pressure 106/64 117/70 125/88 Blood Pressure [Left Arm] Pulse Oximetry 98 97 97 Oxygen Delivery Method Room Air Room Air Room Air Oxygen Flow Rate 08/08/24 17:00 08/08/24 18:00 08/08/24 19:00 Temperature 98 F 96.9 F L Pulse Rate 75 79 72 Pulse Rate [Right Pulse Oximeter] Respiratory Rate 16 16 16 Blood Pressure 128/83 120/82 120/72 Blood Pressure [Left Arm] Pulse Oximetry 97 97 97 Oxygen Delivery Method Room Air Room Air Room Air Oxygen Flow Rate 08/08/24 23:00 08/08/24 23:00 08/08/24 23:00 Temperature 97.5 F L Pulse Rate Pulse Rate [Right Pulse Oximeter] 74 74 Respiratory Rate 20 20 20 Blood Pressure Blood Pressure [Left Arm] 125/75 Pulse Oximetry 98 98 Oxygen Delivery Method Room Air Room Air Oxygen Flow Rate 08/09/24 03:00 Temperature 97.6 F Pulse Rate Pulse Rate [Right Pulse Oximeter] 79 Respiratory Rate 16 Blood Pressure Blood Pressure [Left Arm] 113/66 Pulse Oximetry 99 Oxygen Delivery Method Room Air Oxygen Flow Rate Assessment and Plan Assessment and plan (1) Status post right hip replacement: Problem details: - 08/08/24, Dr. Blair Status: Acute Assessment and Plan: Plan for discharge is today, and when they meets discharge criteria. DVT prophylaxis upon discharge includes Xarelto 10mg daily for a total of 5 days, then Aspirin 81mg twice daily for 30 days. Remove dressing 1 week. Observe wound and phone Orthopedics with any questions or concerns Use Ice on operative hip unrestricted. Return to clinic in 7-10 days for a wound check Return to clinic in 6 weeks with surgeon Minimize narcotic use. Wean off and discontinue soon as possible. Activities as tolerated. No strenuous activity. Attend outpt PT
[2024-08-09 08:33] VITALS: BP 99/82; PULSE 81; RESP 16; TEMP 36.3; O2SAT 98; O2SAT 99
[2024-08-09 08:47] VITALS: BP 110/72
--- NOTE | 2024-08-09 10:47 | PC.SOCIAL ---
Discharge Planning: SW met with patient and patient's son. Patient reports that she has support from her son for the week. Patient states that she also has support from other family member, neighbors and friends if needed. Patient explains she received information about [facility] Patient discussed that she already has some meals prepped at home as well. Patient had no concerns at this time for SW.
--- NOTE | 2024-08-09 11:11 | PC.NURSE ---
Patient discharged home with son. PIV taken out and catheter intact. Ice packs sent home with patient. Prescriptions were sent to [facility] pharmacy. Patient has outpatient PT scheduled and a post op appointment scheduled as well. Patient continues to have some dizziness and nausea but does ambulate to bathroom with stand by assist. Patients son will be with her at home. All questions answered. Left via wheelchair escort.
== END 2024-08-09 11:13 | disposition home or self-care (01) ==
LOC: OR 08:17 → MEDSURG 08:17
PROVIDERS: PCP Emergency Medicine; Visit Provider Orthopaedic Surgery
PROC: (CPT 27130; principal; 2024-08-08 10:45)
DX: M16.11 Unilateral primary osteoarthritis, right hip (principal); G89.18 Other acute postprocedural pain; I10 Essential (primary) hypertension; M81.0 Age-related osteoporosis without current pathological fracture; K21.9 Gastro-esophageal reflux disease without esophagitis; Z79.01 Long term (current) use of anticoagulants; Z51.81 Encounter for therapeutic drug level monitoring; R07.89 Other chest pain; E03.9 Hypothyroidism, unspecified; E78.5 Hyperlipidemia, unspecified
CPT/HCPCS: 27130; 01214; 36415; 64450; 73501; 76942; 82565; 84132; 84295; 84520; 85025; 86850; 86900; 86901; 97110; 97116; 97162; 97165; 97530; 97535; 99100; A9270; C1776; J0690; J1100; J1171; J2250; J2405; J2704; J2795; J3010; J7120

== ENCOUNTER 2024-09-18 11:30 | Outpatient (RCR) | payer MEDICARE, SELFPAY ==
--- NOTE | 2024-08-17 13:51 | PT.OPE ---
PT [place] Outpatient Eval PT [facility] Outpatient Eval Start: 08/17/24 08:41 Freq: Status: Active Protocol: Document 08/17/24 13:50 DESTINEYT (Rec: 08/17/24 13:51 DESTINEYT [id number]) E-signed By Cal Drew PT Physical Therapy Outpatient Evaluation Insurance Information Recert Due Date 11/15/24 Insurance Name Medicare B Medical Diagnosis Z96.641 - Presence of right artificial hip joint Treating Diagnosis Z96.641 R hip replacement Z47.1 Joint replacement aftercare Referring Jacek Reed Subjective Preferred Name Dana Subjective Pt presents today s/p R KIM on 08/08/2024. Pt presents with son Raimundo. Pt is doing well overall, reports just taking tylenol for pain management. Pt reports not having any issues since the surgery and is sleeping well. Also reports that she is consistently completing exercises given and is walking around the house with the walker. Pt lives in a [place]. Would like to know if she can use a 4WW or walking sticks. Pain Comments 05/29 Date of Surgery (If applicable) 08/08/24 Current Work Status Retired Precautions Therapy Limitations/Systems Review Not Limited Objective Other/Pertinent Objective PROM: flexion 90, abduction 20 , IR/ER 10-15 ea Ambulation: pt ambulates with FWW, antalgic favoring R, slight reduction in stride length and wide GREER Scar: covered with dressing, no visible signs of redness, drainage at this time, pts surgical incision present with swelling, induration this date Assessment Assessment/Impression [place] is a very pleasant 78 year old female who presents to our clinic for evaluation and treatment of R KIM. Pt demonstrating good recovery and minimal pain following surgery. Currently ambulating with use of FWW. I do think that Dana could make the transfer to a cane or walking sticks when she feels she is ready as she appears stable with her gait today. I have no concerns for Dana at this time. Will progress pt's ROM, strength, and function per KIM protocol. The nature of the pts condition was explained and all questions were answered to the pts satisfaction. Skilled PT services are medically necessary to address deficits and return patient to highest level of function. Recommend physical therapy sessions 1/ week for 8-12 weeks. Pt agrees with this plan. Printout of HEP was given for I completion and pt gives verbal understanding of each exercise . Co-Signed by Cal Drew, TYL[place] [id number] Primary Functional Limitations Walking, transfers, stairs Plan of Care Rehabilitation Potential Excellent Physical Therapy Goals STG - To be completed in 4 weeks: 1. Pt will report and demonstrate proper performance of HEP and surgical precautions to allow for appropriate recovery following surgery and reduce risk of dislocation. 2. Pt will demonstrate appropriate use of ADs at all times to allow for ease of ambulation and reduce risk of falls. 3. Pt will demonstrate ability to perform all transfers and negotiate stairs I so that they may move throughout his house safely by himself. 4. Pt will demo 0 degrees hip extension to reduce risk of contracture in anterior hip and allow for ease of ambulation. LTG - To be completed in 8 weeks: 1. Pt to be I with HEP so that they may I mange progression of symptoms. 2. Pt will demonstrate 5/5 MMT for all hip motions without pain to provide greater support to pelvis and lumbar spine with functional activities. 3. Pt will ambulation without AD and no gait deviations to reduce straining forces on pelvis and lumbar spine so that they may returning to walking for pleasure with their family. 4.Pt will perform 10+ squats of full depth with good control over medial/lateral deviation of knees to show improved functional strength to assist with transfers. Treatment Plan/Direct Interventions Electrical Stimulation,Gait Training,Heat,Ice/Cold/ Vasopneumatic,Joint Mobilization,Manual Therapy, Neuromuscular Re-ed,Self-Care/ Home Management,Therapeutic Activities,Therapeutic Exercises Frequency/Duration 1/week for 8-12 weeks Patient Will Be Discharged From Therapy Completion of LTG(s),Skills Plateau,Independent w/HEP, Independently Progressing Evaluation Billing Untimed Code Treatment Minutes 20 PT Eval No Charge No Complexity Low Student Supervision Licensed PT Directed/Approved Treatment, Reviewed POC with Patient,Made Contact with Patient, Participated in Treatment Documentation Reviewed By Classified Copy Control Clerk Yes Certification Information Initial Certification Date 08/17/24 Ending Certification Date 11/15/24 Provider Signature Required Yes Provider Signature Shows Agreement With POC & Medical Necessity Physician NPI Number Write NPI# Here Physician Comment/Change : Physician Signature & Date Requested Please Sign/Date Here
== END 2024-09-18 15:26 | disposition home or self-care (01) ==
PROVIDERS: PCP Emergency Medicine; Visit Provider Orthopaedic Surgery
DX: Z47.1 Aftercare following joint replacement surgery (principal); Z96.641 Presence of right artificial hip joint; Z51.89 Encounter for other specified aftercare
CPT/HCPCS: 97110; 97140; 97161

== ENCOUNTER 2024-09-26 10:09 | Outpatient (CLI) | payer MEDICARE, SELFPAY | END 2024-09-26 10:10 | disposition home or self-care (01) | LOC: WOUND 10:10 | PROVIDERS: PCP Emergency Medicine; Visit Provider Nurse Practitioner Family | DX: T81.31XA Disruption of external operation (surgical) wound, not elsewhere classified, initial encounter (principal); Z96.641 Presence of right artificial hip joint; M81.0 Age-related osteoporosis without current pathological fracture; I10 Essential (primary) hypertension; E03.9 Hypothyroidism, unspecified | CPT/HCPCS: 11042; G0463 ==

== ENCOUNTER 2024-10-03 10:10 | Outpatient (CLI) | payer MEDICARE, SELFPAY | END 2024-10-03 10:11 | disposition home or self-care (01) | LOC: WOUND 10:10 | PROVIDERS: PCP Emergency Medicine; Visit Provider Nurse Practitioner Family | DX: T81.31XA Disruption of external operation (surgical) wound, not elsewhere classified, initial encounter (principal); M81.0 Age-related osteoporosis without current pathological fracture; Z96.641 Presence of right artificial hip joint; I10 Essential (primary) hypertension | CPT/HCPCS: 11042 ==

== ENCOUNTER 2024-10-10 10:16 | Outpatient (CLI) | payer MEDICARE, SELFPAY | END 2024-10-10 10:17 | disposition home or self-care (01) | LOC: WOUND 10:16 | PROVIDERS: PCP Emergency Medicine; Visit Provider Physician Assistant | DX: T81.31XA Disruption of external operation (surgical) wound, not elsewhere classified, initial encounter (principal); Z96.641 Presence of right artificial hip joint | CPT/HCPCS: 11042 ==

== ENCOUNTER 2024-10-17 10:17 | Outpatient (CLI) | payer MEDICARE, SELFPAY | END 2024-10-17 10:18 | disposition home or self-care (01) | LOC: WOUND 10:17 | PROVIDERS: PCP Emergency Medicine; Visit Provider Physician Assistant | DX: T81.31XA Disruption of external operation (surgical) wound, not elsewhere classified, initial encounter (principal); M81.0 Age-related osteoporosis without current pathological fracture; Z96.641 Presence of right artificial hip joint; I10 Essential (primary) hypertension | CPT/HCPCS: 97597 ==

== ENCOUNTER 2024-10-24 09:59 | Outpatient (CLI) | payer MEDICARE, SELFPAY | END 2024-10-24 10:00 | disposition home or self-care (01) | LOC: WOUND 09:59 | PROVIDERS: PCP Emergency Medicine; Visit Provider Nurse Practitioner Family | DX: T81.31XA Disruption of external operation (surgical) wound, not elsewhere classified, initial encounter (principal); M81.0 Age-related osteoporosis without current pathological fracture; I10 Essential (primary) hypertension; Z96.641 Presence of right artificial hip joint | CPT/HCPCS: 11042 ==

== ENCOUNTER 2024-10-31 10:17 | Outpatient (CLI) | payer MEDICARE, SELFPAY | END 2024-10-31 10:18 | disposition home or self-care (01) | LOC: WOUND 10:17 | PROVIDERS: PCP Emergency Medicine; Visit Provider Nurse Practitioner Family | DX: T81.31XA Disruption of external operation (surgical) wound, not elsewhere classified, initial encounter (principal); Z96.641 Presence of right artificial hip joint; I10 Essential (primary) hypertension; M81.0 Age-related osteoporosis without current pathological fracture; E03.9 Hypothyroidism, unspecified | CPT/HCPCS: 11042 ==

== ENCOUNTER 2024-11-02 08:45 | Outpatient (CLI) | payer MEDICARE, SELFPAY | END 2024-11-02 08:46 | disposition home or self-care (01) | LOC: NFLDREF 11-04 08:19 | PROVIDERS: PCP Emergency Medicine; Referring Provider Emergency Medicine; Visit Provider Emergency Medicine | DX: E78.2 Mixed hyperlipidemia (principal); E03.9 Hypothyroidism, unspecified; I10 Essential (primary) hypertension | CPT/HCPCS: 80048; 80061; 84439; 84443 ==

== ENCOUNTER 2024-11-07 10:07 | Outpatient (CLI) | payer MEDICARE, SELFPAY | END 2024-11-07 10:08 | disposition home or self-care (01) | LOC: WOUND 10:08 | PROVIDERS: PCP Emergency Medicine; Visit Provider Nurse Practitioner Family | DX: T81.31XA Disruption of external operation (surgical) wound, not elsewhere classified, initial encounter (principal); M81.0 Age-related osteoporosis without current pathological fracture; I10 Essential (primary) hypertension; Z96.641 Presence of right artificial hip joint | CPT/HCPCS: 15271; Q4201 ==

== ENCOUNTER 2024-11-14 10:08 | Outpatient (CLI) | payer MEDICARE, SELFPAY | END 2024-11-14 10:09 | disposition home or self-care (01) | LOC: WOUND 10:08 | PROVIDERS: PCP Emergency Medicine; Visit Provider Nurse Practitioner Family | DX: T81.31XA Disruption of external operation (surgical) wound, not elsewhere classified, initial encounter (principal); Z96.641 Presence of right artificial hip joint; M81.0 Age-related osteoporosis without current pathological fracture; I10 Essential (primary) hypertension; E03.9 Hypothyroidism, unspecified | CPT/HCPCS: G0463 ==

== ENCOUNTER 2024-11-21 08:05 | Outpatient (CLI) | payer MEDICARE, SELFPAY | END 2024-11-21 08:06 | disposition home or self-care (01) | LOC: WOUND 08:06 | PROVIDERS: PCP Emergency Medicine; Visit Provider Nurse Practitioner Family | DX: T81.31XA Disruption of external operation (surgical) wound, not elsewhere classified, initial encounter (principal); Z96.641 Presence of right artificial hip joint; M81.0 Age-related osteoporosis without current pathological fracture; I10 Essential (primary) hypertension | CPT/HCPCS: 15271; Q4201 ==

== ENCOUNTER 2024-11-28 08:15 | Outpatient (CLI) | payer MEDICARE, SELFPAY | END 2024-11-28 08:16 | disposition home or self-care (01) | LOC: WOUND 08:15 | PROVIDERS: PCP Emergency Medicine; Visit Provider Nurse Practitioner Family | DX: T81.31XA Disruption of external operation (surgical) wound, not elsewhere classified, initial encounter (principal); Z96.641 Presence of right artificial hip joint; M81.0 Age-related osteoporosis without current pathological fracture; I10 Essential (primary) hypertension; E03.9 Hypothyroidism, unspecified | CPT/HCPCS: G0463 ==

== ENCOUNTER 2024-12-05 08:14 | Outpatient (CLI) | payer MEDICARE, SELFPAY | END 2024-12-05 08:15 | disposition home or self-care (01) | LOC: WOUND 08:14 | PROVIDERS: PCP Emergency Medicine; Visit Provider Nurse Practitioner Family | DX: T81.31XA Disruption of external operation (surgical) wound, not elsewhere classified, initial encounter (principal); M81.0 Age-related osteoporosis without current pathological fracture; Z96.641 Presence of right artificial hip joint; I10 Essential (primary) hypertension; E03.9 Hypothyroidism, unspecified | CPT/HCPCS: 11042 ==

== ENCOUNTER 2024-12-13 13:39 | Outpatient (CLI) | payer MEDICARE, SELFPAY | END 2024-12-13 13:40 | disposition home or self-care (01) | LOC: WOUND 13:40 | PROVIDERS: PCP Emergency Medicine; Visit Provider Surgery | DX: T81.31XA Disruption of external operation (surgical) wound, not elsewhere classified, initial encounter (principal); M81.0 Age-related osteoporosis without current pathological fracture; Z96.641 Presence of right artificial hip joint; I10 Essential (primary) hypertension; E03.9 Hypothyroidism, unspecified | CPT/HCPCS: 11042; 87070 ==

== ENCOUNTER 2024-12-20 13:22 | Outpatient (CLI) | payer MEDICARE, SELFPAY | END 2024-12-20 13:23 | disposition home or self-care (01) | LOC: WOUND 13:22 | PROVIDERS: PCP Emergency Medicine; Visit Provider Surgery | DX: T81.31XA Disruption of external operation (surgical) wound, not elsewhere classified, initial encounter (principal); Z96.641 Presence of right artificial hip joint; M81.0 Age-related osteoporosis without current pathological fracture; I10 Essential (primary) hypertension; E03.9 Hypothyroidism, unspecified | CPT/HCPCS: G0463 ==

== ENCOUNTER 2025-01-03 13:42 | Outpatient (CLI) | payer MEDICARE, SELFPAY | END 2025-01-03 13:43 | disposition home or self-care (01) | LOC: WOUND 13:42 | PROVIDERS: PCP Emergency Medicine; Visit Provider Surgery | DX: T81.31XA Disruption of external operation (surgical) wound, not elsewhere classified, initial encounter (principal); Z96.641 Presence of right artificial hip joint; I10 Essential (primary) hypertension; E03.9 Hypothyroidism, unspecified; M81.0 Age-related osteoporosis without current pathological fracture | CPT/HCPCS: G0463 ==